=== PATIENT | male | born 1980 | race Caucasian/White ===

== ENCOUNTER 2018-11-28 20:13 | Emergency (ER) | payer SELFPAY ==
[~2018-11-28] VITALS: Ht 190.5 cm; Wt 106.6 kg
--- NOTE | 2018-11-28 20:20 | NUR ---
Patient BIB [facility] for ETOH. Patient was trying to check into a drug rehabilitation center but was denied admission. Patient presented to the department non responsive to verbal stimuli, and responds to tactile stimuli. Per paramedics patient has been drinking alcohol, and has a hx of taking alprazolam, and heroin. Respiratory even and unlabored, no distress. No GI/ distress. Patient in bed at lowest position, srupx2, call light within reach. Fall precautions implemented per protocol.
[2018-11-28 21:01] LABS: BASOPHILS % (AUTO) 0.4 % (0.0-2.0); EOSINOPHILS # (AUTO) 0.5 K/uL (0.0-0.7); EOSINOPHILS % (AUTO) 7.2 % (0.0-7.0); HEMOGLOBIN 13.2 g/dL (12.5-16.3); LYMPHOCYTES # (AUTO) 1.9 K/uL (20.0-40.0); LYMPHOCYTES % (AUTO) 27.8 % (20.5-51.5); MEAN CORPUSCULAR HEMOGLOBIN 28.8 uug (23.8-33.4); MEAN CORPUSCULAR HGB CONC 34 g/dL (32.5-36.3); MEAN CORPUSCULAR VOLUME 84.7 fL (73.0-96.2); MONOCYTES # (AUTO) 0.4 K/uL (2.0-10.0); MONOCYTES % (AUTO) 6.6 % (0.0-11.0); NEUTROPHILS # (AUTO) 3.9 K/uL (1.8-8.9); PLATELET COUNT (AUTO) 240 K/uL (152-348); WHITE BLOOD COUNT (AUTO) 6.7 K/uL (3.6-10.2)
[2018-11-28 21:08] LABS: CREATININE 0.9 mg/dL (0.6-1.3); POTASSIUM 4.2 mmol/L (3.5-5.1)
[2018-11-28 21:13] LABS: ETHANOL < 3 MG/DL (0-0)
[2018-11-28 21:14] LABS: BILIRUBIN,DIRECT 0.2 mg/dL (0.0-0.2); BILIRUBIN,TOTAL 0.5 mg/dL (0.2-1.0); TOTAL PROTEIN, SERUM 6.9 g/dL (6.4-8.2)
--- NOTE | 2018-11-28 21:32 | NUR ---
Patient in bed, on pulse oximeter for monitoring. NAD, VSS
[2018-11-28] MEDS ORDERED: IV NORMAL SALINE 1000 ML BAG IV ONE (22:15)
--- NOTE | 2018-11-28 22:30 | NUR ---
Patient in bed at lowest position, sr upx2 VSS
[2018-11-28 22:36] LABS: *AMPHETAMINE, URINE NEGATIVE (NEGATIVE); *BARBITURATE, URINE NEGATIVE (NEGATIVE); *CANNABINOID, URINE NEGATIVE (NEGATIVE); *COCCAINE, URINE POSITIVE (NEGATIVE); *OPIATE, URINE POSITIVE (NEGATIVE); *PHENCYCLIDINE SCREEN,URINE NEGATIVE (NEGATIVE)
--- NOTE | 2018-11-29 05:30 | NUR ---
Patient discharged to home in stable conditon. Written and verbal after care instructions given. Patient verbalizes understanding of instructions. Patient ambulated with stable gait.
[2018-11-29 06:09] VITALS: BP 120/70
== END 2018-11-29 06:10 | disposition home or self-care (01) ==
LOC: ER 20:15
DX: F13.99 Sedative, hypnotic or anxiolytic use, unspecified with unspecified sedative, hypnotic or anxiolytic-induced disorder (principal); R53.83 Other fatigue
CPT/HCPCS: 36415; 80048; 80076; 80307; 85025; 93005; 99284; G0480; A4663; C1758; J7040